=== PATIENT | female | born 1990 | race Caucasian/White ===

== ENCOUNTER 2016-09-21 16:44 | Outpatient (CLI) | payer OTHER ==
--- NOTE | 2016-09-21 17:03 | XR ---
EXAMINATION TYPE: XR chest 2V DATE OF EXAM: 09/21/2016 4:58 PM COMPARISON: None HISTORY: 25 year-old female fever and cough TECHNIQUE: Frontal and lateral views FINDINGS: The cardiomediastinal silhouette, aorta, and pulmonary vasculature are within normal limits. Lungs an d pleural spaces are clear. IMPRESSION: No acute cardiopulmonary process.
== END 2016-09-21 17:33 | disposition home or self-care (01) ==
LOC: RADXRMAIN 16:44
PROVIDERS: ATTEND Family Medicine
DX: R50.9 Fever, unspecified (principal); R05 Cough
CPT/HCPCS: 87502; 71020; G0463; 99212

== ENCOUNTER → 2018-05-12 | Outpatient (CLI) | payer OTHER ==
[2018-05-12 13:57] LABS: HCT 38.7 % (34.0-46.0); HGB 12.6 gm/dL (11.4-16.0); MCH 28.6 pg (25.0-35.0); MCHC 32.6 g/dL (31.0-37.0); MCV 87.7 fL (80.0-100.0); Mean Platelet Volume 6.5; Platelet Count 303 k/uL (150-450); RBC 4.41 m/uL (3.80-5.40); RDW 13.4 % (11.5-15.5); WBC 10.3 k/uL (3.8-10.6)
== END | disposition home or self-care (01) ==
LOC: LABWHC1 12:40
PROVIDERS: ATTEND Obstetrics & Gynecology
DX: Z34.82 Encounter for supervision of other normal pregnancy, second trimester (principal)
CPT/HCPCS: 36415; 82950; 85027

== ENCOUNTER 2018-07-24 13:32 | Outpatient (CLI) | payer OTHER ==
[2018-07-24 14:21] VITALS: BP 126/74; PULSE 88; RESP 18; TEMP 97.7
--- NOTE | 2018-08-05 12:00 | P.MSEPDOC ---
Presenting Problems - Arrival Data Date of Arrival on Unit: 07/24/18 Time of Arrival on Unit: 13:40 Mode of Transport: Ambulatory - Complaint OB-Reason for Admission/Chief Complaint: Possible Onset of Labor Comment: contractions this morning starting at 0600, soft bowel movement x 4 today Medical History - Information : 2 Para: 1 Term: 1 : 0 Abortions: Spontaneous or Elective: 0 Number of Living Children: 1 - Gestational Age Gestational Age by SRAVANTHI (wks/days): 37 Weeks and 4 Days - History Comment: inhaler prn Review of Systems - Review of Systems Constitutional: No problems Breast: No problems ENT: No problems Cardiovascular: No problems Respiratory: No problems Gastrointestinal: No problems Genitourinary: No problems Musculoskeletal: No problems Neurological: No problems Skin: No problems Vital Signs - Temperature Temperature: 97.7 F Temperature Source: Temporal Artery Scan - Pulse Right Sitting Brachial Pulse Rate: 88 Pulse Assessment Method: Automatic Cuff - Respirations Respiratory Rate: 18 Oxygen Delivery Method: Room Air O2 Sat by Pulse Oximetry: 97 - Blood Pressure Right Arm Sitting Blood Pressure: 126/74 Blood Pressure Mean: 91 Blood Pressure Source: Automatic Cuff Medical Screen Scoring (Pre) - Cervical Exam Dilation: 1-3 cm = 1 Effacement: More than 50% = 2 Membranes: Intact - Uterine Contractions Frequency: > 5 minutes apart = 1 Duration: > 40 seconds = 2 Intensity: N/A - Maternal Vital Signs Maternal Temperature: N/A Maternal Blood Pressure: N/A Signs of Preeclampsia: N/A Maternal Respirations: N/A - Pain Assessment Pain Scale Used: Numeric (1 - 10) Pain Intensity: 0 Pain Management Goal: 3 - Assessment Baseline FHR: 130 Heart Rate - NICHD Category: Category I (Normal) = 0 NST: Reactive Position: N/A Station: N/A - Total Score Total Score (Pre): 6 - Level of Risk Level of Risk: Medium (6-9) Physician Notification (Pre) - Physician Notified Physician Notified Date: 07/24/18 Physician Notified Time: 14:15 Physician/Practitioner Notifed:: dr brito Spoke With: dr brito New Order Received: Yes - Notification Comment Comment: dc home, pt to follow up in office tomorrow at 1530 as scheduled. Disposition - Disposition OB Disposition: Discharge to home Discharge Date: 07/24/18 Discharge Time: 14:21 I agree with the RN Medical Screening Exam: Yes Risk & Benefit of care provided described in d/c instruction: Yes Diagnosis: FALSE LABOR AT OR AFTER 37 COMPLETED WEEKS OF GESTATION
== END 2018-07-24 14:23 | disposition home or self-care (01) ==
LOC: FBPOP 13:32
PROVIDERS: ATTEND Obstetrics & Gynecology
DX: O47.1 False labor at or after 37 completed weeks of gestation (principal); Z3A.37 37 weeks gestation of pregnancy
CPT/HCPCS: 59025; G0463; 99213

== ENCOUNTER 2018-07-26 00:55 | Inpatient (IN) | payer OTHER ==
[2018-07-26] MEDS ORDERED: LIDOCAINE 1% INJ 10MG/ML (20 ML MDV) SQ PRN (01:01)
[2018-07-26] MEDS ORDERED: TERBUTALINE 1 MG/ML VIAL SQ PRN (01:01)
[2018-07-26] MEDS ORDERED: METHYLERGONOVINE 0.2 MG/ML 1 ML AMP IM PRN (01:01)
[2018-07-26] MEDS ORDERED: CARBOPROST TROMETHAMINE 250 MCG/ML 1 ML AMP IM PRN (01:01)
[2018-07-26] MEDS ORDERED: OXYTOCIN 10 UNIT/ML 1 ML VIAL IM PRN (01:01)
[2018-07-26 01:12] VITALS: BMI 39.0
[2018-07-26] MEDS: LACTATED RINGERS 1,000 ML IV SCH ×2 (01:19→03:18)
--- NOTE | 2018-07-26 01:53 | P.HPOB ---
History of Present Illness H&P Date: 07/26/18 Chief Complaint: Contractions. Patient is a pleasant 27-year-old 2 para 1 female estimated date of confinement 08/10/2018 weighted gestational age 37-6/7 weeks who presents to labor and delivery with complaints of contractions. Patient began having his contractions earlier in the evening the become much stronger. Patient was 2 cm in the office today is now 6 cm dilated thought to be in active labor. care is per Dr. Mejia shows to have some pyelectasis of the left kidney and was being seen at maternal medicine however has been unable to get their for return visits. Patient's was also complicated by positive chlamydial culture with a negative test of cure. Review of Systems Gastrointestinal: Reports heartburn Genitourinary: Reports Menstruation: Reports amenorrhea Past Medical History Past Medical History: Asthma Additional Past Medical History / Comment(s): Eczema History of Any Multi-Drug Resistant Organisms: MRSA Date of last positivie culture/infection: 2008 MDRO Source:: left buttock Additional Past Surgical History / Comment(s): labial reduction-2004 Past Anesthesia/Blood Transfusion Reactions: No Reported Reaction Past Psychological History: No Psychological Hx Reported Smoking Status: Never smoker Past Alcohol Use History: None Reported Past Drug Use History: None Reported - Past Family History Father Family Medical History: Asthma Mother Family Medical History: No Reported History Additional Family Medical History / Comment(s): MGGM Medications and Allergies Home Medications Medication Instructions Recorded Confirmed Type Albuterol Inhaler [Ventolin 1 - 2 puff INHALATION Q6HR PRN 12/13/14 07/26/18 History Inhaler] Pbj-Xdoj-Cmvuz Acid 1 each PO DAILY 03/03/15 07/26/18 History [-U Capsule] Allergies Allergy/AdvReac Type Severity Reaction Status Date / Time Penicillins Allergy Rash/Hives Verified 07/26/18 00:58 Exam Vital Signs Temp Pulse Resp BP Pulse Ox 07/26/18 01:07 98.0 F 89 20 131/80 98 07/26/18 01:04 97.1 F L 91 18 131/80 98 Intake and Output 07/25/18 07/25/18 07/26/18 14:59 22:59 06:59 Other: Weight 109.769 kg - OBG Physical Exam Abdomen: bowel sounds normal, no diffuse tenderness, no bruit present, no guarding noted, no hepatomegaly, no splenomegaly, no mass Vulva: both: normal Vagina: normal moisture, no discharge Cervix: Cervix is 6 cm dilated 50% effaced -2 station. Uterus: enlarged (Fundal height consistent with gestational age) Results blood work shows she is O positive, rubella immune, RPR is nonreactive , hepatitis B is negative, group B strep was negative, Glucola was unavailable. Ultrasound at 32 weeks' shows dilation of the left renal pelvis at 1.2 cm. Assessment and Plan Assessment: This is a pleasant 27-year-old 2 para 1 female 37-6/7 weeks gestation who is in active labor. Plan is artificial rupture membranes and anticipate vaginal delivery. This time patient does not wish to have any pain medications. We will alert the tool profiling machine set up operator's to the left pyelectasis. (1) 38 weeks gestation of Current Visit: Yes Status: Acute Code(s): Z3A.38 - 38 WEEKS GESTATION OF SNOMED Code(s): 96092113 (2) Normal labor Current Visit: Yes Status: Acute Code(s): O80 - ENCOUNTER FOR FULL-TERM UNCOMPLICATED DELIVERY; Z37.9 - OUTCOME OF DELIVERY, UNSPECIFIED SNOMED Code(s ): 59958356 (3) pyelectasis Current Visit: Yes Status: Acute Code(s): TGR5964 - SNOMED Code(s): 680043994
[2018-07-26 02:24] LABS: Basophils % (A) 0 %; Eosinophils # (A) 0.2 k/uL (0-0.7); Eosinophils % (A) 2 %; HCT 38.6 % (34.0-46.0); HGB 12.8 gm/dL (11.4-16.0); Lymphocytes # (A) 2.2 k/uL (1.0-4.8); Lymphocytes % (A) 21 %; MCH 29.7 pg (25.0-35.0); MCV 89.9 fL (80.0-100.0); Mean Platelet Volume 9.1; Monocytes # (A) 0.5 k/uL (0-1.0); Monocytes % (A) 5 %; Neutrophils # (A) 7.4 k/uL (1.3-7.7); Neutrophils % (A) 71 %; Platelet Count 288 k/uL (150-450); RDW 13.5 % (11.5-15.5); WBC 10.5 k/uL (3.8-10.6)
--- NOTE | 2018-07-26 05:04 | P.PROBDLV ---
Vaginal Delivery Note - . Vaginal Delivery Note: Normal spontaneous vaginal delivery viable male infant Apgars 9 and 9 delivery time was 0450 hours. Please see dictated H&P for intimate details of this patient's admission. Brief summary is a pleasant 27-year-old 2 para 1 female 37-6/7 weeks gestation admitted to labor and delivery with complaints of regular painful contractions. On admission patient's cervix 6 cm dilated. She is artificial rupture membranes for clear fluid. Labor progresses and she does get an epidural for pain control. Patient thereafter does get to complete pushes the head to the perineum. Posterior perineum is supported and was 1 push delivered the head. Mouth and nares are bulb suctioned and patient then spontaneously delivers rest of this infant's body with 1 push. This is a vigorous viable male Apgars are 9 and 9 delivery time is 0450 hours. Infant has spontaneous respiration and good cry and grossly appears normal. is in laid on the mother's abdomen. After the cortisone pulsating is doubly clamped cut appears to be trivascular. The placenta is then spontaneously delivered intact. There are no lacerations and no repairs required. Cord blood is obtained due to O positive status. and mother stable delivery room.
[2018-07-26] MEDS ORDERED: diphenhydrAMINE 50 MG/ML 1 ML VIAL IVP PRN (05:05)
[2018-07-26] MEDS ORDERED: ACETAMINOPHEN TAB 325 MG TAB PO PRN (05:05)
[2018-07-26] MEDS ORDERED: WITCH HAZEL 1 EACH MED..PAD TOPICAL PRN (05:05)
[2018-07-26] MEDS ORDERED: HYDROCORTISONE 2.5% RECTAL CREAM 30 GM TUBE RECTAL PRN (05:05)
[2018-07-26] MEDS ORDERED: BENZOCAINE/MENTHOL SPRAY 1 GM/SPRAY AEROSOL TOPICAL PRN (05:05)
[2018-07-26] MEDS ORDERED: LANOLIN CREAM 5 GM TUBE TOPICAL PRN (05:05)
[2018-07-26] MEDS ORDERED: ZOLPIDEM 5 MG TAB PO PRN (05:05)
[2018-07-26] MEDS ORDERED: BISACODYL 10 MG SUPP RECTAL PRN (05:05)
[2018-07-26] MEDS ORDERED: SIMETHICONE 80 MG CHEWABLE PO PRN (05:05)
[2018-07-26] MEDS ORDERED: diphenhydrAMINE 25 MG CAP PO PRN (05:05)
[2018-07-26] MEDS ORDERED: OXYTOCIN 20 UNITS/1000 ML NS 1,000 ML IV SCH (05:15)
[2018-07-26] MEDS: SENNOSIDES-DOCUSATE SODIUM 1 EACH TAB PO SCH (08:00)
[2018-07-26 10:08] VITALS: RESP 20
[2018-07-26] MEDS ORDERED: ROPIVACAINE 100 MG, fentaNYL (PF) 200 MCG in SODIUM CHLORIDE 0.9% 76 ML EPIDURAL ONE (11:23)
[2018-07-26] MEDS: IBUPROFEN 600 MG TAB PO PRN ×2 (14:31→20:16)
[2018-07-26 15:48] VITALS: BP 120/76; PULSE 79; TEMP 98.2
[2018-07-27] MEDS: SENNOSIDES-DOCUSATE SODIUM 1 EACH TAB PO SCH ×2 (00:32→06:13)
[2018-07-27] MEDS: IBUPROFEN 600 MG TAB PO PRN (06:13)
[2018-07-27 07:13] LABS: Basophils % (A) 0 %; Eosinophils # (A) 0.3 k/uL (0-0.7); Eosinophils % (A) 3 %; HCT 37.8 % (34.0-46.0); HGB 12.8 gm/dL (11.4-16.0); Lymphocytes # (A) 1.9 k/uL (1.0-4.8); Lymphocytes % (A) 20 %; MCH 29.8 pg (25.0-35.0); MCHC 33.8 g/dL (31.0-37.0); MCV 88.1 fL (80.0-100.0); Monocytes # (A) 0.4 k/uL (0-1.0); Monocytes % (A) 5 %; Neutrophils # (A) 6.5 k/uL (1.3-7.7); Neutrophils % (A) 70 %; Platelet Count 234 k/uL (150-450); RBC 4.29 m/uL (3.80-5.40); RDW 13.3 % (11.5-15.5); WBC 9.2 k/uL (3.8-10.6)
--- NOTE | 2018-07-27 07:14 | P.DS ---
Providers Date of admission: 07/26/18 01:01 Expected date of discharge: 07/27/18 Attending physician: Jj Mejia Primary care physician: Stated None Hospital Course: Patient is doing very well day 1. She is involuting, voiding, and she is tolerating her diet. She voices no complaints and is requesting discharge home today. Prescription for Motrin provided. Otherwise her vital signs are stable and afebrile. Heart regular, lungs clear, extremities are without pain. Abdomen is soft uterus is firm and lochia is reported light. Assessment post day 1. Plan discharged home follow up with me in 6 weeks. Patient Condition at Discharge: Good Plan - Discharge Summary New Discharge Prescriptions: New Ibuprofen [Motrin] 600 mg PO Q6HR PRN #30 tab PRN Reason: Pain No Action Albuterol Inhaler [Ventolin Inhaler] 1 - 2 puff INHALATION Q6HR PRN PRN Reason: Respiratory Distress Ztj-Cpni-Wqoxe Acid [-U Capsule] 1 each PO DAILY Discharge Medication List Albuterol Inhaler [Ventolin Inhaler] 1 - 2 puff INHALATION Q6HR PRN 12/13/14 [ History] Bug-Gqko-Bswix Acid [-U Capsule] 1 each PO DAILY 03/03/15 [ History] Ibuprofen [Motrin] 600 mg PO Q6HR PRN #30 tab 07/27/18 [Rx] Follow up Appointment(s)/Referral(s): Jj Mejia DO [Doctor of Osteopathic Medicine] - 6 Weeks Activity/Diet/Wound Care/Special Instructions: No heavy lifting, limit stairs and driving, and pelvic rest. If any high temperatures, heavy bleeding, or severe pain call my office Discharge Disposition: HOME SELF-CARE
== END 2018-07-27 12:47 | disposition home or self-care (01) | DRG 807 ==
LOC: FBPOP 00:55 → 4FBP 01:01
PROVIDERS: ADMIT Obstetrics & Gynecology; ATTEND Obstetrics & Gynecology
PROC: 10E0XZZ Delivery of Products of Conception, External Approach (ICD-10-PCS; principal; 2018-07-26)
PROC: 00HU33Z Insertion of Infusion Device into Spinal Canal, Percutaneous Approach (ICD-10-PCS; 2018-07-26)
PROC: 3E0R3BZ Introduction of Anesthetic Agent into Spinal Canal, Percutaneous Approach (ICD-10-PCS; 2018-07-26)
DX: O35.8XX0 Maternal care for other (suspected) fetal abnormality and damage, not applicable or unspecified (principal); Z37.0 Single live birth; O99.52 Diseases of the respiratory system complicating childbirth; J45.909 Unspecified asthma, uncomplicated; L30.9 Dermatitis, unspecified; O99.72 Diseases of the skin and subcutaneous tissue complicating childbirth; Z3A.38 38 weeks gestation of pregnancy; Z86.14 Personal history of Methicillin resistant Staphylococcus aureus infection; Z88.0 Allergy status to penicillin; Z82.5 Family history of asthma and other chronic lower respiratory diseases
CPT/HCPCS: 59025; 85025; 86850; 86900; 86901; 88307; 99213

== ENCOUNTER → 2018-09-26 | Outpatient (CLI) | payer OTHER | LOC: LABWHC1 11:05 | PROVIDERS: ATTEND Obstetrics & Gynecology | DX: Z34.90 Encounter for supervision of normal pregnancy, unspecified, unspecified trimester (principal); Z3A.00 Weeks of gestation of pregnancy not specified | CPT/HCPCS: 36415; 84702 ==

== ENCOUNTER → 2020-08-27 | Outpatient (CLI) | payer OTHER | END | disposition home or self-care (01) | LOC: LABWHC1 15:51 | PROVIDERS: ATTEND Obstetrics & Gynecology | DX: N92.6 Irregular menstruation, unspecified (principal) | CPT/HCPCS: 36415; 84702 ==

== ENCOUNTER → 2020-09-03 | Outpatient (CLI) | payer OTHER ==
--- NOTE | 2020-09-03 15:46 | US ---
EXAMINATION TYPE: US pelvic complete DATE OF EXAM: 09/03/2020 COMPARISON: early OB US CLINICAL HISTORY: R10.2 Pelvic pain. Patient stated feels like she is . Has Nexplanon implant left arm and last LMP in February lasting 45 days; . TECHNIQUE: Transabdominal (TA). Transabdominal sonographic images of the pelvis were acquired. Date of LMP: February 2020 EXAM MEASUREMENTS: Uterus: 8.7 x 4.0 x 3.1 cm Endometrial Stripe: 0.4 cm Right Ovary: 3.9 x 2.6 x 2.6 cm Left Ovary: 2.4 x 1.8 x 1.8 cm 1. Uterus: Anteverted 2. Endometrium: unable to correlate thickness with February 2020 LMP and hormonal implant Nexplanon 3. Right Ovary: simple cyst seen = 2.2 x 1.6 x 1.6cm 4. Left Ovary: small follicles seen Spectral, color and waveform Doppler imaging shows good arterial and venous flow within the ovaries . 5. Bilateral Adnexa: wnl 6. Posterior cul-de-sac: wnl IMPRESSION: No intrapelvic ascites. No suspicious finding identified.
== END | disposition home or self-care (01) ==
LOC: RADUSWWP 14:24
PROVIDERS: ATTEND Obstetrics & Gynecology
DX: R10.2 Pelvic and perineal pain (principal)
CPT/HCPCS: 76856